=== PATIENT | male | born 1970 | race Caucasian/White ===

== ENCOUNTER 2017-02-17 20:09 | Emergency (ER) | payer SELFPAY ==
[~2017-02-17] VITALS: Ht 182.9 cm; Wt 88.0 kg
[2017-02-17 20:17] VITALS: BP 110/68; PULSE 122; RESP 20; TEMP 98.1; O2SAT 92
[2017-02-17] MEDS ORDERED: LISI10TA3 PO (20:29)
[2017-02-17] MEDS ORDERED: SODIUM CHLOR 0.9% 1000 ML INJ 1,000 ML IV ONE (20:30)
--- NOTE | 2017-02-17 20:35 | PD ---
HPI Chief Complaint: OD/ Ingestion Time Seen by Provider: 20:22 Travel History International Travel<30 days: No Contact w/Intl Traveler<30days: No Traveled to known affect area: No History of Present Illness HPI 46-year-old male with EMS transport from [facility] where he was noted to have had a heroin overdose post-injection with loss of consciousness and depressed respirations requiring [employer] administered 4 mg of nasal Narcan and EMS requiring application of nasal trumpet and supplemental oxygen with bagging for approximately 10 minutes prior to regaining consciousness with GCS of 15 at this time. [facility] Past Medical History Diminished Hearing: No Hypertension: Yes Tetanus Vaccination: Unknown Influenza Vaccination: No Past Surgical History Abdominal Surgery: Yes (hernia repair in abd) Social History Alcohol Use: Yes (occasionally, pt states drank tonight) Tobacco Use: Yes Substance Use: Yes (heroin tonight, marjaunia) Allergies-Medications (Allergen,Severity, Reaction): Coded Allergies: No Known Allergies (Unverified , 02/17/17) Reported Meds & Prescriptions Reported Meds & Active Scripts Active Reported Lisinopril 10 Mg Tab 10 Mg PO DAILY Review of Systems Except as stated in HPI: all other systems reviewed are Neg Physical Exam Narrative GENERAL: Well-developed well-nourished male in no acute distress no respiratory distress; GCS 15 SKIN: Warm and dry. HEAD: Normocephalic. EYES: No scleral icterus. No injection or drainage. NECK: Supple, trachea midline. No JVD or lymphadenopathy. CARDIOVASCULAR: Regular rate and rhythm without murmurs, gallops, or rubs. RESPIRATORY: Breath sounds equal bilaterally. No accessory muscle use. GASTROINTESTINAL: Abdomen soft, non-tender, nondistended. MUSCULOSKELETAL: No cyanosis, or edema. BACK: Nontender without obvious deformity. No CVA tenderness. Data Data Last Documented VS Vital Signs Date Time Temp Pulse Resp B/P (MAP) Pulse Ox O2 Delivery O2 Flow Rate FiO2 02/17/17 21:00 114 18 116/69 (85) 95 Room Air 02/17/17 20:17 98.1 Orders Orders Electrocardiogram (02/17/17 20:22) Complete Blood Count With Diff (02/17/17 20:22) Comprehensive Metabolic Panel (02/17/17 20:22) Prothrombin Time / Inr (Pt) (02/17/17 20:22) Act Partial Throm Time (Ptt) (02/17/17 20:22) Urinalysis - C+S If Indicated (02/17/17 20:22) Blood Glucose (02/17/17 20:22) Iv Access Insert/Monitor (02/17/17 20:22) Ecg Monitoring (02/17/17 20:22) Oximetry (02/17/17 20:22) Drug Screen, Random Urine (02/17/17 20:22) Alcohol (Ethanol) (02/17/17 20:22) Tylenol (Acetaminophen) (02/17/17 20:22) Sodium Chlor 0.9% 1000 Ml Inj (Ns 1000 M (02/17/17 20:30) Labs Laboratory Tests Test 02/17/17 20:40 02/17/17 23:59 White Blood Count 10.1 TH/MM3 Red Blood Count 5.14 MIL/MM3 Hemoglobin 17.0 GM/DL Hematocrit 49.2 % Mean Corpuscular Volume 95.8 FL Mean Corpuscular Hemoglobin 33.1 PG Mean Corpuscular Hemoglobin Concent 34.6 % Red Cell Distribution Width 13.6 % Platelet Count 235 TH/MM3 Mean Platelet Volume 8.2 FL Neutrophils (%) (Auto) 60.4 % Lymphocytes (%) (Auto) 33.6 % Monocytes (%) (Auto) 3.3 % Eosinophils (%) (Auto) 2.0 % Basophils (%) (Auto) 0.7 % Neutrophils # (Auto) 6.1 TH/MM3 Lymphocytes # (Auto) 3.4 TH/MM3 Monocytes # (Auto) 0.3 TH/MM3 Eosinophils # (Auto) 0.2 TH/MM3 Basophils # (Auto) 0.1 TH/MM3 CBC Comment AUTO DIFF Differential Comment AUTO DIFF CONFIRMED Stomatocytes 3+ Prothrombin Time 11.2 SEC Prothromb Time International Ratio 1.1 RATIO Activated Partial Thromboplast Time 23.1 SEC Blood Urea Nitrogen 11 MG/DL Creatinine 0.83 MG/DL Random Glucose 122 MG/DL Total Protein 8.1 GM/DL Albumin 4.4 GM/DL Calcium Level 7.9 MG/DL Alkaline Phosphatase 74 U/L Aspartate Amino Transf (AST/SGOT) 48 U/L Alanine Aminotransferase (ALT/SGPT) 57 U/L Total Bilirubin 0.6 MG/DL Sodium Level 138 MEQ/L Potassium Level 4.1 MEQ/L Chloride Level 106 MEQ/L Carbon Dioxide Level 23.0 MEQ/L Anion Gap 9 MEQ/L Estimat Glomerular Filtration Rate 101 ML/MIN Acetaminophen Level LESS THAN 2.0 MCG/ML Ethyl Alcohol Level 147 MG/DL MDM Medical Decision Making Medical Screen Exam Complete: Yes Emergency Medical Condition: Yes Medical Record Reviewed: Yes Interpretation(s) EKG: Sinus tachycardia rate 120 right ventricular conduction delay no acute ST elevation or injury pattern change noted artifact is present at baseline CBC & BMP Diagram 02/17/17 20:40 02/17/17 23:59 Total Protein 8.1, Albumin 4.4, Calcium Level 7.9 L, Alkaline Phosphatase 74, Aspartate Amino Transf (AST/SGOT) 48 H, Alanine Aminotransferase (ALT/SGPT) 57, Total Bilirubin 0.6 Acetaminophen less than 2.0, not elevated Differential Diagnosis Polysubstance ingestion, opiate overdose intentional versus accidental, alcohol ingestion, respiratory failure post opiate/heroin ingestion Narrative Course 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 Patient has been ambulatory about the exam room. Patient is identified at time of specimen collection to have a serum alcohol of 147. Patient taking oral hydration well. Patient admits to having heroin injected prior to onset of witnessed event of becoming unresponsive with depressed respirations. Patient's pupil round reactive to light. At this point in time after greater than 4 hours of observation patient appears stable for outpatient management is encouraged strongly to not use any substances in the future specifically heroin. Patient reports that he is aware of the risks of further substance use and alcohol ingestion. Patient given resources for outpatient rehabilitation/detox programs. Diagnosis Primary Impression: Opiate overdose Qualified Codes: T40.601A - Poisoning by unspecified narcotics, accidental ( unintentional), initial encounter Additional Impression: Alcohol use Referrals: [facility] call for appointment Patient Instructions: General Instructions Additional Instructions: Increase fluid hydration with NON-alcoholic beverages. Do not use any substances Continue current prescription medications as prescribed Follow-up with [facility] resources Return to the emergency department for a concerns or change in condition Follow-up with your primary care provider Med/Other Pt SpecificInfo: No Change to Meds Disposition: 01 DISCHARGE HOME Condition: Stable Meri Hamm MD Feb 17, 2017 20:35
[2017-02-17 21:00] VITALS: BP 116/69; PULSE 114; RESP 18; O2SAT 95
[2017-02-17 21:03] LABS: AUTOMATED NEUTROPHIL # 6.1 TH/MM3 (1.8-7.7); BASOPHIL # 0.1 TH/MM3 (0-0.2); BASOPHIL % 0.7 % (0.0-2.0); EOSINOPHIL # 0.2 TH/MM3 (0-0.4); HEMATOCRIT 49.2 % (39.0-51.0); LYMPH % 33.6 % (9.0-44.0); LYMPHOCYTE # 3.4 TH/MM3 (1.0-4.8); MEAN CELL VOLUME 95.8 FL (80.0-100.0); MEAN CORPUSCULAR HEMOGLOBIN 33.1 PG (27.0-34.0); MEAN CORPUSCULAR HGB CONC 34.6 % (32.0-36.0); MEAN PLATELET VOLUME 8.2 FL (7.0-11.0); MONO % 3.3 % (0.0-8.0); MONOCYTE # 0.3 TH/MM3 (0-0.9); NEUT % 60.4 % (16.0-70.0); PLATELET COUNT 235 TH/MM3 (150-450); RED BLOOD COUNT 5.14 MIL/MM3 (4.50-5.90); RED CELL DISTRIBUTION WIDTH 13.6 % (11.6-17.2); WHITE BLOOD COUNT 10.1 TH/MM3 (4.0-11.0)
[2017-02-17 21:14] LABS: INTERNATIONAL NORMALIZED RATIO 1.1 RATIO; PROTHROMBIN TIME - PATIENT 11.2 SEC (9.8-11.6)
[2017-02-17 21:43] LABS: STOMATOCYTES 3+ (NORMAL)
[2017-02-18 00:21] LABS: ALBUMIN 4.4 GM/DL (3.4-5.0); ALT (GPT) 57 U/L (12-78); AST (GOT) 48 U/L (15-37); BLOOD UREA NITROGEN 11 MG/DL (7-18); CALCIUM 7.9 MG/DL (8.5-10.1); CHLORIDE 106 MEQ/L (98-107); CREATININE 0.83 MG/DL (0.60-1.30); GLOMERULAR FILTRATION RATE 101 ML/MIN (>89); GLUCOSE,RANDOM 122 MG/DL (74-106); SODIUM (NA) 138 MEQ/L (136-145)
[2017-02-18 00:23] LABS: ALKALINE PHOSPHATASE 74 U/L (45-117); TOTAL BILIRUBIN ADULT 0.6 MG/DL (0.2-1.0); TOTAL PROTEIN 8.1 GM/DL (6.4-8.2)
[2017-02-18 00:24] LABS: ACETAMINOPHEN LESS THAN 2.0 MCG/ML (10.0-30.0)
[2017-02-18 00:39] VITALS: BP 133/93; PULSE 99; RESP 18; O2SAT 97
--- NOTE | 2017-02-18 12:48 | EKG ---
Date Performed: 02/17/2017 Time Performed: 20:27:23 PTAGE: 46 years EKG: SINUS TACHYCARDIA VERTICAL QRS AXIS PROBABLY WITHIN NORMAL LIMITS ABNORMAL RHYTHM ECG NO PREVIOUS TRACING DOCTOR: Román Solano Interpretating Date/Time 02/18/2017 12:46:19
== END 2017-02-18 00:49 | disposition home or self-care (01) ==
LOC: NEPC 20:09
DX: T40.1X1A Poisoning by heroin, accidental (unintentional), initial encounter (principal); F10.129 Alcohol abuse with intoxication, unspecified; R00.0 Tachycardia, unspecified; R94.31 Abnormal electrocardiogram [ECG] [EKG]; I10 Essential (primary) hypertension; Z79.899 Other long term (current) drug therapy
CPT/HCPCS: 80053; 80307; 85025; 85610; 85730; 93005; 99284; J7030